=== PATIENT | female | born 1965 | race Hispanic/Latino ===

== ENCOUNTER 2018-01-15 07:53 | Emergency (ER) | payer MEDICAID ==
[2018-01-15 07:54] VITALS: BMI 22.3
[2018-01-15 08:07] VITALS: RESP 18; TEMP 98.2
--- NOTE | 2018-01-15 09:03 | RAD ---
PROCEDURE: Right Knee Radiographs. HISTORY: right knee pain COMPARISON: None. FINDINGS: BONES: No acute fracture. JOINTS: Unremarkable. JOINT EFFUSION: Moderate effusion. OTHER FINDINGS: None. IMPRESSION: Moderate suprapatellar joint effusion without demonstrated fracture or dislocation.
--- NOTE | 2018-01-15 09:18 | C.PDOC ---
History Of Present Illness Michelle Burns is a 52 year old female, with no significant past medical history, who presents to the emergency department complaining of right knee pain onset for x1 month. Patient reports symptoms started after she fell on her knee on 11/14/2017. Patient was sent to the ER by her doctor for an MRI of the right knee. Patient did not have an X-Ray done and has not seen an orthopedist. She denies any other medical complaints. PMD: Shaik Wright Time Seen by Provider: 01/15/18 07:59 Chief Complaint (Nursing): Lower Extremity Problem/Injury History Per: Patient History/Exam Limitations: no limitations Onset/Duration Of Symptoms: Days (x1 month) Current Symptoms Are (Timing): Still Present - Knee Description Of Injury: Fell Past Medical History Reviewed: Historical Data, Nursing Documentation, Vital Signs Vital Signs: Last Vital Signs Temp 98.2 F 01/15/18 08:04 Pulse 76 01/15/18 09:31 Resp 18 01/15/18 09:31 BP 138/82 01/15/18 09:31 Pulse Ox 98 01/15/18 09:31 - Medical History PMH: Depression, Hypercholesterolemia, Hypothyroidism, Migraine Denies: Chronic Kidney Disease Surgical History: Tonsillectomy Family History: States: Unknown Family Hx - Social History Hx Tobacco Use: Yes (Heavy smoker >10 cigarettes daily) Hx Alcohol Use: No Hx Substance Use: No - Immunization History Hx Tetanus Toxoid Vaccination: No Hx Influenza Vaccination: Yes Hx Pneumococcal Vaccination: No Review Of Systems Except As Marked, All Systems Reviewed And Found Negative. Musculoskeletal: Positive for: Leg Pain (right knee pain) Physical Exam - Physical Exam Appears: Other (comfortable) Skin: Normal Color, Warm, Dry Head: Atraumatic, Normacephalic Eye(s): bilateral: Normal Inspection Neck: Normal ROM Extremity: Normal ROM (Right knee), No Tenderness, No Calf Tenderness, No Deformity, No Swelling (or erythema) Pulses: Left Dorsalis Pedis: Normal, Right Dorsalis Pedis: Normal Neurological/Psych: Oriented x3 ED Course And Treatment O2 Sat by Pulse Oximetry: 95 (RA) Pulse Ox Interpretation: Normal Progress Note: Initial Impression: Knee sprain. Initial Plan: --Knee 3 views RT [RAD]. --Carlitos bandage. 09:02 Right knee X-Ray. FINDINGS: BONES: No acute fracture. JOINTS: Unremarkable. JOINT EFFUSION: Moderate effusion. OTHER FINDINGS: None. IMPRESSION: Moderate suprapatellar joint effusion without demonstrated fracture or dislocation. Disposition Counseled Patient/Family Regarding: Studies Performed, Diagnosis, Need For Followup, Rx Given - Disposition Referrals: Adrian Guthrie MD [Staff Provider] - Disposition: HOME/ ROUTINE Disposition Time: 09:20 Condition: STABLE Prescriptions: Naproxen 375 mg PO BID PRN #20 tablet PRN Reason: pain Instructions: Knee Sprain (DC) Forms: [email or web address] (Tongan) Print Language: GREEK - Clinical Impression Clinical Impression: Right knee pain - Scribe Statement Zay Menjivar
[2018-01-15 09:32] VITALS: BP 138/82; PULSE 76
[2018-01-15 15:14] VITALS: O2SAT 95
== END 2018-01-15 09:32 | disposition home or self-care (01) ==
LOC: C.ER 07:53
DX: M25.561 Pain in right knee (principal)

== ENCOUNTER 2019-01-02 15:20 | Emergency (ER) | payer MEDICAID ==
[2019-01-02 15:20] VITALS: BMI 22.3
--- NOTE | 2019-01-02 17:28 | C.PDOC ---
History Of Present Illness Patient is a 53 year old female ALA who presents to the ED for left ankle pain after she mis-stepped while walking downstairs and twisted her ankle inwards. Patient states that she then got up and fell again, twisting her ankle outwards this time. Patient is currently unable to bear weight. She denies any head injury, LOC, or sensory changes. Time Seen by Provider: 01/02/19 15:22 Chief Complaint (Nursing): Lower Extremity Problem/Injury History Per: Patient History/Exam Limitations: no limitations Onset/Duration Of Symptoms: Hrs Current Symptoms Are (Timing): Still Present Recent travel outside of the [place]: No Additional History Per: Patient - Ankle/Foot Description Of Injury: Fell Currently Unable To: Bear Weight Past Medical History Reviewed: Historical Data, Nursing Documentation, Vital Signs Vital Signs: Last Vital Signs Temp 98.0 F 01/02/19 15:36 Pulse 96 H 01/02/19 15:36 Resp 20 01/02/19 15:36 BP 149/99 H 01/02/19 15:36 Pulse Ox 98 01/02/19 15:36 - Medical History PMH: Depression, Hypercholesterolemia, Hypothyroidism, Migraine Denies: Chronic Kidney Disease Surgical History: Tonsillectomy Family History: States: Unknown Family Hx - Social History Hx Tobacco Use: Yes (Heavy smoker >10 cigarettes daily) Hx Alcohol Use: No Hx Substance Use: No - Immunization History Hx Tetanus Toxoid Vaccination: No Hx Influenza Vaccination: Yes Hx Pneumococcal Vaccination: No Review Of Systems Constitutional: Negative for: Other (head injury ) Musculoskeletal: Positive for: Foot Pain (Ankle pain ) Neurological: Negative for: Other (LOC or sensory changes ) Physical Exam - Physical Exam Appears: Non-toxic, Other (appears to be in mild pain ) Skin: Normal Color, Warm, Dry Head: Atraumatic, Normacephalic Oral Mucosa: Moist Neck: Normal ROM Chest: Symmetrical Cardiovascular: Rhythm Regular Respiratory: Normal Breath Sounds Extremity: Tenderness (tender to palpation left lateral malleolus and anterior ankle. no calf tenderness ), Capillary Refill (less than 2 seconds ), No Deformity, Swelling (left ankle mildly swollen lateral malleolus ), Other Pulses: Left Dorsalis Pedis: Normal, Right Dorsalis Pedis: Normal ED Course And Treatment O2 Sat by Pulse Oximetry: 98 (on RA) Pulse Ox Interpretation: Normal Interpretation Of Abnormal: Plan: Xray Lft Ankle. Xray Left Foot. Tylenol 650mg PO - Other Rad Xray Lft Ankle X-Ray: Viewed By Me, Read By Radiologist Interpretation: IMPRESSION: No acute displaced fracture, dislocation, or significant joint effusion identified. If symptoms persist, or if there is continued clinical concern, x-ray follow-up in 7-10 days should be considered. Xray Lft Foot X-Ray: Viewed By Me, Read By Radiologist Interpretation: IMPRESSION: No acute displaced fracture, dislocation, or significant joint effusion identified. If symptoms persist, or if there is continued clinical concern, x-ray follow-up in 7-10 days should be considered. Disposition Counseled Patient/Family Regarding: Studies Performed, Diagnosis, Need For Followup, Rx Given - Disposition Referrals: Shaik Wright MD [Staff Provider] - Emil Morin III, MD [Staff Provider] - [facility] [Outside] Disposition: HOME/ ROUTINE Disposition Time: 17:40 Condition: STABLE Additional Instructions: FOLLOW UP WITH PODIATRY OR ORTHOPEDICS WITHIN 1 WEEK ELEVATE ANKLE MUCH POSSIBLE USE PAIN MEDICATION NEEDED RETURN TO ER IF SYMPTOMS WORSEN Prescriptions: Naproxen 375 mg PO BID PRN #20 tablet PRN Reason: pain Instructions: Ankle Sprain (DC) Forms: [employer] (Spanish) Print Language: NEPALESE - POA Present On Arrival: Falls Or Trauma - Clinical Impression Clinical Impression: Left ankle sprain - Scribe Statement The provider has reviewed the documentation as recorded by the Brenda Tse All medical record entries made by the Yokastaibanya were at my direction and personally dictated by me. I have reviewed the chart and agree that the record accurately reflects my personal performance of the history, physical exam, medical decision making, and the department course for this patient. I have also personally directed, reviewed, and agree with the discharge instructions and disposition.
--- NOTE | 2019-01-02 17:33 | RAD ---
PROCEDURE: Left foot radiographs Left ankle radiographs HISTORY: left foot pain after fall, r/o fx COMPARISON: None available. FINDINGS: BONES: No acute displaced fracture. Calcaneal enthesophyte. JOINTS: No dislocation. SOFT TISSUES: Unremarkable. No evidence of radiopaque foreign body. OTHER FINDINGS: None. IMPRESSION: No acute displaced fracture, dislocation, or significant joint effusion identified. If symptoms persist, or if there is continued clinical concern, x-ray follow-up in 7-10 days should be considered.
[2019-01-02] MEDS ORDERED: Oxycodone/Acetaminophen 5/325 mg Tab PO STA (18:10)
[2019-01-02] MEDS ORDERED: Oxycodone/Acetaminophen 5/325 mg Tab ONE (18:29)
[2019-01-02 18:32] VITALS: BP 145/93; PULSE 89; RESP 18; TEMP 98.1; O2SAT 99
== END 2019-01-02 18:40 | disposition home or self-care (01) ==
LOC: C.ER 15:20
DX: S93.402A Sprain of unspecified ligament of left ankle, initial encounter (principal); X50.1XXA Overexertion from prolonged static or awkward postures, initial encounter